=== PATIENT | male | born 1940 | race Two or more races ===

== ENCOUNTER → 2018-03-11 11:07 | Day surgery (SDC) | payer OTHER ==
--- NOTE | 2018-02-26 08:01 | HP ---
CC: Dr. Sergio Erazo * HISTORY AND PHYSICAL: DATE OF PLANNED ADMISSION AND SURGERY: 03/11/18 HISTORY OF PRESENT ILLNESS: Mr. 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 The patient has a long history of a bladder outlet obstruction and has been maintained for the last several years on Avodart and tamsulosin. He continued to be significantly symptomatic with day frequency about every 2 hours with slow stream, hesitancy, intermittency, and postvoid dribbling and feeling of incomplete bladder emptying. He denies any episodes of gross hematuria or urinary tract infections. The patient's symptoms have progressed and he was recently reevaluated. Postvoid bladder ultrasound showed a large residual of 300 cc by ultrasound; however, by straight catheterization, the residual was 600 cc. He then had a cystoscopy which showed an enlarged obstructing prostate. The bladder wall looked normal. Urodynamic studies showed good detrusor function with a voiding detrusor pressure of more than 80 cm of water making him a very good candidate for transurethral resection of the prostate. The patient had a PSA of 1.5 four months ago. PAST MEDICAL HISTORY AND SYSTEM REVIEW: He is in very good health. He has very good exercise tolerance. MEDICATIONS: He is on no other chronic medications. ALLERGIES: He denies any allergies to medications. PHYSICAL EXAMINATION GENERAL: Pleasant and healthy-looking male. VITAL SIGNS: Blood pressure 150/86, pulse of 76. LUNGS: Clear. HEART: Regular and rhythmic. No murmurs. ABDOMEN: Soft, no masses, no tenderness, and no CVA tenderness. EXTERNAL GENITALIA: Normal. RECTAL: Shows an enlarged but nonsuspicious prostate. IMPRESSION: Bladder outlet obstruction with prostate enlargement and large postvoid residual while on full medical treatment with Avodart and tamsulosin. Good detrusor function by urodynamic studies. PLAN/RECOMMENDATIONS: Plan is for transurethral resection of the prostate. I had a long discussion with the patient and his daughter who is an LAB[employer] TRA[employer] physician regarding the indications and the procedure. Some of the potential complications of the surgery including infection, hematuria, small incidence of urinary incontinence and a very high incidence of retrograde ejaculation. I also discussed the possibility that he might continue to have an increased postvoid residual following the surgery because of the chronic large residual urine that was noted. All their questions were answered. [id number]/[facility] #: [id number] [place]
[2018-03-05 13:55] VITALS: BP 157/76
[~2018-03-11 11:07] MED LIST: Buffered Lidocaine 0.9% SYRIN* 5 ML/SYR SYRINGE INTRADERM ONE; Lactated Ringers 1000 ML Bag* 1,000 ML IV SCH; Sodium Citrate/Citric Acid* 15 ML UDC PO ONE
== END | disposition home or self-care (01) ==
LOC: OR 03-05 12:52
PROVIDERS: ATTEND Urology
DX: N40.1 Benign prostatic hyperplasia with lower urinary tract symptoms (principal); Z53.09 Procedure and treatment not carried out because of other contraindication

== ENCOUNTER 2018-03-18 10:52 | Observation (INO) | payer OTHER ==
[~2018-03-18 10:52] MED LIST changes: -Sodium Citrate/Citric Acid* 15 ML UDC PO ONE; +cefTRIAXone(*) 2 GM ADDV.VIAL IVPB ONE
[2018-03-18] MEDS ORDERED: Midazolam* 1 MG/ML 5 ML VIAL (5 MG) ONE (12:42)
[2018-03-18] MEDS ORDERED: Lidocaine 1%* 5 ML VIAL ONE (12:44)
[2018-03-18] MEDS ORDERED: Naloxone* 0.4 MG/ML 1 ML VIAL IV PRN (14:21)
[2018-03-18] MEDS ORDERED: fentaNYL* 50 MCG/ML 2 ML VIAL (100 MCG VIAL) IV PRN (14:21)
[2018-03-18] MEDS ORDERED: Ondansetron INJ* 2 MG/ML VIAL IV PRN (14:21)
[2018-03-18] MEDS ORDERED: Oxybutynin TAB* 5 MG PO PRN (14:30)
[2018-03-18] MEDS ORDERED: oxyCODONE/Acetamin 5/325 MG* TAB PO PRN (14:30)
[2018-03-18] MEDS ORDERED: Lidocaine 2% JELLY* 6 ML JELLY TOPICAL PRN (14:30)
--- NOTE | 2018-03-18 21:05 | OP ---
CC: Dr. Erazo * DATE OF OPERATION: 03/18/18 - ROOM #342 DATE OF : 44 SURGEON: Rohit Hamm MD ANESTHESIOLOGIST: Dr. Shin. ANESTHESIA: Spinal. PRE-OP DIAGNOSES: 1. Benign prostatic hyperplasia. 2. Bladder outlet obstruction due to above. POST-OP DIAGNOSES: 1. Benign prostatic hyperplasia. 2. Bladder outlet obstruction due to above. OPERATIVE PROCEDURE: 1. Cystoscopy. 2. Transurethral resection of the prostate. INDICATION FOR PROCEDURE: Mr. Tanner is a 77-year-old male, who has a long history of bladder outlet obstruction secondary to prostate enlargement. He has been maintained on tamsulosin and on finasteride. He continued to be significantly symptomatic with a large post-void residual of about 600 cc. Cystoscopy showed a large obstructing prostate. Urodynamic studies showed high voiding detrusor pressure. Because of the above history, the failure of medical treatment and the partial urinary retention, a TURP was advised and accepted. PATHOLOGY AT CYSTOSCOPY: The penile and bulbar urethrae looked normal. The prostatic urethra measured 3 cm in length and there was significant degree of obstruction mostly by large lateral lobes of the prostate and elevated bladder neck.. Examination of the bladder showed normal ureteral orifices. There were moderate diffuse bladder trabeculations. No diverticula, no suspicious bladder lesions, and no calculi were noted. 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 There was some adenomatous tissue projecting distal to the verumontanum. DESCRIPTION OF PROCEDURE: After successful spinal anesthesia, the patient was placed in the lithotomy position and was prepped and draped for a cystoscopy. Cystoscopy was performed. The findings in the prostatic urethra and the bladder were noted. The cystoscope was then removed and the resectoscope was introduced inside the bladder. Mannitol-sorbitol solution was used for irrigation and the inflow and outflow were adjusted to avoid overdistention of the bladder. Resection of the protruding portions of the lateral lobes inside the bladder neck was then performed circumferentially. The resectoscope was then positioned at the level of the mid prostatic urethra and the prostate adenoma was resected circumferentially. The resectoscope was then positioned at the level of the verumontanum. The left lateral lobe was then resected starting at 5 o'clock and proceeding anteriorly. The right lobe was resected next. The apical tissue and the anterior tissue were resected last. No resection was carried beyond the verumontanum and the residual adenomatous tissue in the apex was nonobstructing. The limits of the resection were the veru distally, the bladder neck proximally and the capsule circumferentially. The bleeders were electrocoagulated and controlled. At the completion of the resection, the prostatic urethra was wide open. There was still residual adenomatous tissue mostly in the posterior prostatic urethra ; however, it was nonobstructing. There was no perforation of the capsule and no open sinuses. The external sphincter, the verumontanum, the ureteral orifices and the bladder wall were all intact. After making sure there was good hemostasis and after irrigating all the prostate chips out, the resectoscope was removed and a size 22-Greek Brody catheter was passed inside the bladder and the balloon inflated with 40 cc of water. Irrigation yielded clear returns. The Brody catheter was then placed under gentle traction and taped to the right thigh of the patient. The urine outflow was clear. The patient tolerated the procedure well and left the operating room in good condition. The blood loss was estimated at about 50 cc. The specimen was prostate chips. [id number]/[facility] #: [id number] [facility]ITALPasc[facility]
[2018-03-18] MEDS: LR IV SCH (22:59)
[2018-03-19] MEDS: LR IV SCH (05:17)
[2018-03-19] MEDS ORDERED: cefTRIAXone(*) 1 GM in NS 0.9% 50 ML* 50 ML IVPB ONE (07:00)
[2018-03-19 09:14] VITALS: BP 159/67
--- NOTE | 2018-03-19 09:17 | DS ---
CC: Dr. Sergio Erazo * DISCHARGE SUMMARY: DATE OF ADMISSION: 03/18/18 DATE OF DISCHARGE: 03/19/18 FINAL DIAGNOSES: 1. Benign prostatic hyperplasia. 2. Bladder outlet obstruction due to above. OPERATION PERFORMED: Transurethral resection of the prostate on 03/18/18. BRIEF HISTORY: Mr. Tanner is a 77-year-old male who had long history of bladder outlet obstruction and prostate enlargement and has been maintained on finasteride and tamsulosin. While on the above treatment, he had increasing obstructive voiding symptoms with large postvoid residual. Office cystoscopy showed a large obstructing prostate and bladder trabeculations. Postvoid residual at the time of the cystoscopy was almost 600 cc indicating partial urinary retention. Urodynamic studies showed high voiding detrusor pressure with slow flow and high post-void residual consistent with bladder outlet obstruction and good detrusor function making him a good candidate for transurethral resection of the prostate. His PSA has been stable at 1.5. PAST MEDICAL HISTORY AND SYSTEM REVIEW: He is in excellent health. He is on no other chronic medications and has no allergies to medications. He is a nonsmoker. Family history is negative for prostate cancer. Preoperative lab work was all within normal. Preoperative physical examination also was normal. Rectal exam showed a large but non-suspicious prostate. COURSE IN HOSPITAL: The patient was admitted the morning of his surgery. He underwent an uncomplicated transurethral resection of the prostate. He was kept overnight for observation and by the morning, his urine was clear. His vital signs were normal and there were no acute problems. The patient is being discharged home in good condition with Brody catheter drainage. I asked him to discontinue the tamsulosin and I recommended continuing long- term finasteride at 1 tablet every other day to decrease the chances of the prostate enlarging in the future. The plan is to see the patient in my office in 5 days and the Brody catheter will be removed. Instructions were given for his followup care. Pathology showed benign prostatic tissue. The volume of the prostate tissue resected was 30 cc. [id number]/[facility] #: [id number] [facility]
== END 2018-03-19 11:05 | disposition home or self-care (01) ==
LOC: OR 10:52 → SSU 15:57
PROVIDERS: ADMIT Urology; ATTEND Urology
DX: N40.1 Benign prostatic hyperplasia with lower urinary tract symptoms (principal); N32.0 Bladder-neck obstruction; N13.8 Other obstructive and reflux uropathy
CPT/HCPCS: 88305; A9270-GY; G0378; J0696; J2250